=== PATIENT | male | born 1975 | race Caucasian/White ===

== ENCOUNTER 2017-04-27 19:08 | Emergency (ER) | payer SELFPAY ==
[~2017-04-27] VITALS: Ht 185.4 cm; Wt 103.0 kg
[2017-04-27 19:11] VITALS: BP 173/113; PULSE 74; RESP 15; TEMP 98.4; O2SAT 100
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
[2017-04-27] MEDS ORDERED: SODIUM CHLOR 0.9% 1000 ML INJ 1,000 ML IV SCH (20:11)
--- NOTE | 2017-04-27 20:13 | PD ---
HPI Chief Complaint: General Weakness Time Seen by Provider: 20:12 Travel History International Travel<30 days: No Contact w/Intl Traveler<30days: No Traveled to known affect area: No History of Present Illness HPI 41-year-old male returns to the emergency department for evaluation of productive cough, shortness of breath, fatigue and weakness for the past 3 days. The patient states he is driving through from [place] to [facility]. He' s been driving for the past 2 days and sleeping in his car. He states that he' s been feeling generally unwell over the past several days and has had a productive cough and shortness of breath. He states he has been told in the past that he has COPD, he continues to smoke cigarettes. He does not have an inhaler at this time. Complains of subjective fever and chills. States he has had some nausea and a few episodes of nonbloody nonbilious emesis. Denies any chest pain, abdominal pain, diarrhea, constipation, swelling of the extremities. Denies any sick contacts. Patient denies drug use. Admits to daily alcohol use. States he's had one alcoholic beverage today. No other complaints. [facility] Past Medical History Medical History: Denies Significant Hx Past Surgical History Surgical History: No Previous Surgery Social History Alcohol Use: Yes ([facility].) Tobacco Use: Yes (1 PPD ) Substance Use: No Allergies-Medications (Allergen,Severity, Reaction): Coded Allergies: No Known Allergies (Unverified , 04/27/17) Reported Meds & Prescriptions Reported Meds & Active Scripts Active No Active Prescriptions or Reported Medications Review of Systems Except as stated in HPI: all other systems reviewed are Neg Physical Exam Narrative GENERAL: Well-nourished and well-developed pleasant male patient in no acute distress who is nontoxic appearing. SKIN: Warm and dry. HEAD: Normocephalic and atraumatic. EYES: No injection, drainage, or hyphema noted. PERRLA. EOMI. ENT: No nasal drainage noted. Oropharynx is clear. NECK: Supple and the trachea is midline. CARDIOVASCULAR: Regular rate and rhythm. RESPIRATORY: Wheezing in bilateral lungs throughout. No accessory muscle use, rhonchi, or crackles. GASTROINTESTINAL: Abdomen is soft, non-tender, and nondistended. MUSCULOSKELETAL: No obvious deformities, swelling, cyanosis, or ecchymosis is present throughout the upper and lower extremities. Patient has full range of motion without any signs of neurovascular compromise. NEUROLOGICAL: Awake, alert, and oriented. Normal speech and gait. Cranial nerves are grossly intact. Data Data Last Documented VS Vital Signs Date Time Temp Pulse Resp B/P Pulse Ox O2 Delivery O2 Flow Rate FiO2 04/27/17 20:27 18 97 Room Air 04/27/17 19:11 98.4 74 173/113 Orders Complete Blood Count With Diff (04/27/17 20:11) Comprehensive Metabolic Panel (04/27/17 20:11) Influenzae A/B Antigen (04/27/17 20:11) Iv Access Insert/Monitor (04/27/17 20:11) Electrocardiogram (04/27/17 20:11) Ecg Monitoring (04/27/17 20:11) Oximetry (04/27/17 20:11) Oxygen Administration (04/27/17 20:11) Chest, Single Ap (04/27/17 20:11) Sodium Chloride 0.9% Flush (Ns Flush) (04/27/17 20:15) Methylprednisolone So Succ Inj (Solumedr (04/27/17 20:15) Albuterol-Ipratropium Neb (Duoneb Neb) (04/27/17 20:15) Alcohol (Ethanol) (04/27/17 20:11) Sodium Chlor 0.9% 1000 Ml Inj (Ns 1000 M (04/27/17 20:11) Azithromycin (Zithromax) (04/27/17 21:45) Albuterol Hfa Inh (Proair Hfa Inh) (04/27/17 21:45) Labs Laboratory Tests Test 04/27/17 20:20 White Blood Count 8.0 TH/MM3 Red Blood Count 5.12 MIL/MM3 Hemoglobin 12.2 GM/DL Hematocrit 37.9 % Mean Corpuscular Volume 73.9 FL Mean Corpuscular Hemoglobin 23.8 PG Mean Corpuscular Hemoglobin 32.2 % Concent Red Cell Distribution Width 18.1 % Platelet Count 180 TH/MM3 Mean Platelet Volume 8.5 FL Neutrophils (%) (Auto) 67.7 % Lymphocytes (%) (Auto) 21.6 % Monocytes (%) (Auto) 8.7 % Eosinophils (%) (Auto) 1.1 % Basophils (%) (Auto) 0.9 % Neutrophils # (Auto) 5.4 TH/MM3 Lymphocytes # (Auto) 1.7 TH/MM3 Monocytes # (Auto) 0.7 TH/MM3 Eosinophils # (Auto) 0.1 TH/MM3 Basophils # (Auto) 0.1 TH/MM3 CBC Comment DIFF FINAL Differential Comment Sodium Level 137 MEQ/L Potassium Level 3.6 MEQ/L Chloride Level 103 MEQ/L Carbon Dioxide Level 26.5 MEQ/L Anion Gap 8 MEQ/L Blood Urea Nitrogen 13 MG/DL Creatinine 0.79 MG/DL Estimat Glomerular Filtration 108 ML/MIN Rate Random Glucose 89 MG/DL Calcium Level 8.6 MG/DL Total Bilirubin 0.4 MG/DL Aspartate Amino Transf 40 U/L (AST/SGOT) Alanine Aminotransferase 33 U/L (ALT/SGPT) Alkaline Phosphatase 99 U/L Total Protein 7.1 GM/DL Albumin 3.6 GM/DL Ethyl Alcohol Level LESS THAN 3 MG/DL MDM Medical Decision Making Medical Screen Exam Complete: Yes Emergency Medical Condition: Yes Differential Diagnosis COPD exacerbation versus pneumonia versus electrolyte abnormality versus dehydration Narrative Course 41-year-old male is brought to the emergency department for evaluation of productive cough, shortness of breath and weakness. Patient is afebrile, vital signs are stable. On physical examination he has bilateral wheezing throughout lung gómez. Otherwise physical exam is unremarkable. IV access is obtained, labs drawn and sent. Patient is placed on cardiac telemetry and pulse oximetry monitoring. Patient is administered duo nebs 3 and Solu-Medrol 125 mg IV. CBC shows mild anemia with a hemoglobin of 12.2, hematocrit 37.9. CMP is unremarkable. 2 inches negative. Chest x-ray is negative. Patient is reassessed after nebulizers and steroids and reports great improvement of symptoms. Lungs are now clear to auscultation bilaterally. Patient is experiencing a mild COPD exacerbation. He'll be discharged with a prescription for Z-Mayur, steroids and an albuterol inhaler. Stress smoking cessation. Advised outpatient follow-up. Patient verbalizes understanding and agreement with treatment plan. Diagnosis Primary Impression: COPD exacerbation Referrals: Primary Care Physician Patient Instructions: COPD (Chronic Obstructive Pulmonary Disease) (ED), General Instructions Additional Instructions: Stop smoking cigarettes. Take medications as prescribed with food and a full glass of water. Prednisone is $5 at [facility]. I've included a coupon for Zithromax. Follow-up with your Primary Care Physician. Return to the ED for any acute worsening of symptoms. Med/Other Pt SpecificInfo: Prescription(s) given Scripts Albuterol 18 GM Inh (Ventolin Hfa 18 GM Inh)90 Mcg/Act Aer2 Puff INH Q4-6H PRN ( SHORTNESS OF BREATH) #1 INHALER Ref 0 Prov:Eloy Banks MD 04/27/17 Prednisone 20 Mg Tab20 Mg PO BID 5 Days Ref 0 Prov:Eloy Banks MD 04/27/17 Azithromycin (Zithromax Z-Mayur)250 Mg Qvop846 Mg PO DIRECTED #1 DSPK Ref 0 500 MG (2 tabs) day 1, then 1 tab days 2-5. Prov:Eloy Banks MD 04/27/17 Disposition: 01 DISCHARGE HOME Condition: Stable Sandra Francois Apr 27, 2017 20:12
[2017-04-27] MEDS ORDERED: methylPREDNISolone SOD SUCC 125 MG/2 ML VIAL IVP ONE (20:15)
[2017-04-27] MEDS ORDERED: SODIUM CHLORIDE 0.9% FLUSH 10 ML FLUSH IVF PRN (20:15)
[2017-04-27] MEDS: RESP: ALBUTEROL 2.5 MG/IPRATROPIUM 0.5 MG NEB (SCH) INH ×3 (20:20→20:40)
[2017-04-27 20:27] VITALS: RESP 18; O2SAT 97
--- NOTE | 2017-04-27 20:40 | RADRPT ---
EXAM DATE/TIME: 04/27/2017 20:35 [place] COMPARISON: No previous studies available for comparison. INDICATIONS : Cough and shortness of breath. MEDICAL HISTORY : Asthma. SURGICAL HISTORY : None. ENCOUNTER: Initial ACUITY: 2 days PAIN SCORE: 2/10 LOCATION: chest FINDINGS: A single view of the chest demonstrates the lungs to be symmetrically aerated without evidence of mas s, infiltrate or effusion. The cardiomediastinal contours are unremarkable. Osseous structures are intact. CONCLUSION: No acute disease. Denis Cali MD on April 27, 2017 at 20:37 Board Certified Radiologist. This report was verified electronically.
[2017-04-27 21:24] LABS: AUTOMATED NEUTROPHIL # 5.4 TH/MM3 (1.8-7.7); BASOPHIL # 0.1 TH/MM3 (0-0.2); BASOPHIL % 0.9 % (0.0-2.0); EOSINOPHIL # 0.1 TH/MM3 (0-0.4); EOSINOPHIL % 1.1 % (0.0-4.0); HEMATOCRIT 37.9 % (39.0-51.0); HEMO FLAGS DIFF FINAL; LYMPH % 21.6 % (9.0-44.0); LYMPHOCYTE # 1.7 TH/MM3 (1.0-4.8); MEAN CELL VOLUME 73.9 FL (80.0-100.0); MEAN CORPUSCULAR HEMOGLOBIN 23.8 PG (27.0-34.0); MEAN CORPUSCULAR HGB CONC 32.2 % (32.0-36.0); MONO % 8.7 % (0.0-8.0); NEUT % 67.7 % (16.0-70.0); PLATELET COUNT 180 TH/MM3 (150-450); RED BLOOD COUNT 5.12 MIL/MM3 (4.50-5.90); RED CELL DISTRIBUTION WIDTH 18.1 % (11.6-17.2)
[2017-04-27 21:32] LABS: ANION GAP 8 MEQ/L (5-15); AST (GOT) 40 U/L (15-37); BICARBONATE 26.5 MEQ/L (21.0-32.0); BLOOD UREA NITROGEN 13 MG/DL (7-18); CHLORIDE 103 MEQ/L (98-107); GLOMERULAR FILTRATION RATE 108 ML/MIN (>89); POTASSIUM 3.6 MEQ/L (3.5-5.1); SODIUM (NA) 137 MEQ/L (136-145)
[2017-04-27 21:33] LABS: ALT (GPT) 33 U/L (12-78)
[2017-04-27 21:35] LABS: ALKALINE PHOSPHATASE 99 U/L (45-117); TOTAL BILIRUBIN ADULT 0.4 MG/DL (0.2-1.0)
[2017-04-27] MEDS ORDERED: ZITHTAB PO (21:45)
[2017-04-27] MEDS ORDERED: AZITHROMYCIN 250 MG TAB PO ONE (21:45)
[2017-04-27] MEDS ORDERED: VENTAER INH (21:45)
[2017-04-27] MEDS ORDERED: PRED20 PO (21:45)
[2017-04-27] MEDS ORDERED: ALBUTEROL SULFATE 90 MCG/ACT HFA 8 GM INHALER INH ONE (21:45)
[2017-04-27] MEDS ORDERED: ALBUTEROL SULFATE 90 MCG/ACT HFA 18 GM INHALER INH ONE (22:15)
--- NOTE | 2017-04-28 07:54 | EKG ---
Date Performed: 04/27/2017 Time Performed: 20:23:45 PTAGE: 41 years EKG: Sinus rhythm WITH SINUS ARRHYTHMIA NORMAL ECG NO PREVIOUS TRACING DOCTOR: Tesfaye Khalil Interpretating Date/Time 04/28/2017 07:50:51
== END 2017-04-27 22:54 | disposition home or self-care (01) ==
LOC: NEPE 19:08
DX: J44.1 Chronic obstructive pulmonary disease with (acute) exacerbation (principal); R53.83 Other fatigue; R53.1 Weakness; F17.210 Nicotine dependence, cigarettes, uncomplicated
CPT/HCPCS: 71010; 80053; 80307; 85025; 87804; 93005; 94640; 94664; 96374; 99285; J2930; J7030